=== PATIENT | female | born 1940 | race Caucasian/White ===

== ENCOUNTER 2016-07-21 14:21 | Emergency (ER) | payer MEDICARE | END 2016-07-21 18:26 | disposition home or self-care (01) | DX: M79.661 Pain in right lower leg (principal); R03.0 Elevated blood-pressure reading, without diagnosis of hypertension; E03.9 Hypothyroidism, unspecified; Z79.82 Long term (current) use of aspirin ==

== ENCOUNTER 2016-08-12 10:46 | Outpatient (CLI) | payer MEDICARE | END 2016-08-12 10:47 | disposition home or self-care (01) | DX: M85.88 Other specified disorders of bone density and structure, other site (principal) ==

== ENCOUNTER 2016-09-22 16:09 | Outpatient (CLI) | payer MEDICARE | END 2016-09-22 16:10 | disposition home or self-care (01) | DX: M47.27 Other spondylosis with radiculopathy, lumbosacral region (principal); M47.26 Other spondylosis with radiculopathy, lumbar region; M21.371 Foot drop, right foot ==

== ENCOUNTER 2018-02-08 11:58 | Outpatient (CLI) | payer MEDICARE ==
--- NOTE | 2018-02-09 10:50 | Mammography Report ---
Procedure Date: 02/08/2018 Accession Number: [id number] / [id number] Procedure: MGN - Screening Mammo Dig Bilat CPT Code: FULL RESULT: EXAM: Screening Mammo Dig Bilat DATE: 02/08/2018 12:21 PM CLINICAL HISTORY: 77-year-old female with family history of breast cancer in a sister at age 65 presents for screening mammogram. TECHNIQUE: Bilateral CC and MLO views were obtained. COMPARISON: 11/06/2015, 02/15/2014, 11/30/2012, 10/29/2011. FINDINGS: The breasts demonstrate heterogeneously dense fibroglandular parenchyma bilaterally. Typically benign coarse calcifications are seen bilaterally. No suspicious masses, clustered microcalcifications, or regions of architectural distortion are identified. IMPRESSION: Benign findings RECOMMENDATION: Routine annual screening unless otherwise clinically indicated. BIRADS CATEGORY 2: Benign findings STANDARD QUALIFYING STATEMENTS: 1. This examination was reviewed with the aid of Computer-Aided Detection (CAD). 2. A negative or benign imaging report should not delay biopsy if clinically suspicious findings are present. Consider surgical consultation if warrented. More than 5% of cancers are not identified by imaging. 3. Dense breasts may obscure an underlying neoplasm.
== END 2018-02-08 11:59 | disposition home or self-care (01) ==
LOC: DI.N 11:58
PROVIDERS: ATTEND Radiology Diagnostic Radiology
DX: Z12.31 Encounter for screening mammogram for malignant neoplasm of breast (principal); Z80.3 Family history of malignant neoplasm of breast
CPT/HCPCS: 77067

== ENCOUNTER 2021-01-02 08:00 | Outpatient (CLI) | payer MEDICARE | END 2021-01-02 23:59 | disposition home or self-care (01) | LOC: LAB.S 08:00 | PROVIDERS: ATTEND Physician Assistant Medical | DX: N30.01 Acute cystitis with hematuria (principal) | CPT/HCPCS: 87077; 87086; 87181 ==

== ENCOUNTER 2021-08-07 14:36 | Outpatient (CLI) | payer MEDICARE | END 2021-08-07 14:37 | disposition critical access hospital (66) | LOC: EMS 14:36 | DX: R07.89 Other chest pain (principal) | CPT/HCPCS: A0425; A0429 ==

== ENCOUNTER 2021-08-07 15:15 | Emergency (ER) | payer MEDICARE ==
--- NOTE | 2021-08-07 15:18 | ED Physician Documentation ---
PD HPI CHEST PAIN - Stated complaint Stated Complaint: CP - History obtained from History obtained from: Patient, EMS - History of Present Illness Timing - onset: How many hours ago (1), Today Timing - onset during: Light activity (just sitting at desk working on computer, had abrupt onset left lower anterolateral chest pain, sharp. No dyspnea, lightheadedness. Some worse with breathing.) Timing - details: Abrupt onset, Now resolved (mostly resolved after about 30 minutes. Still some mild pain in area. Pain area has not moved.) Quality: Sharp, Stabbing, Pain Location: Left chest (lower left anterolateral aspect.) Radiation: No: Jaw, Neck, Back Improved by: No: Rest (not initially, but subsequently did improve with sitting.) Worsened by: Inspiration. No: Movement, Palpation Associated symptoms: No: Shortness of air, Nausea, Feeling faint / dizzy, Palpitations, Cough Similar symptoms before: Has not had sx before Recently seen: Surgery (back surgery couple months ago, healing well.) Review of Systems Constitutional: denies: Fever, Chills Nose: denies: Rhinorrhea / runny nose, Congestion Throat: denies: Sore throat Cardiac: reports: Chest pain / pressure (just today). denies: Palpitations, Pedal edema, Calf pain Respiratory: denies: Dyspnea, Cough GI: denies: Abdominal Pain, Nausea, Vomiting Skin: denies: Rash, Lesions Neurologic: denies: Generalized weakness, Near syncope PD PAST MEDICAL HISTORY - Past Medical History Cardiovascular: Hypertension, High cholesterol Respiratory: None Neuro: None Endocrine/Autoimmune: HyPOthyroidism GI: GERD - Past Surgical History Past Surgical History: Yes /VERIFICATION LEAD: Hysterectomy - Present Medications Home Medications: Ambulatory Orders Medication Instructions Recorded Confirmed Levothyroxine Sodium [Tirosint] 112 mcg PO DAILY 06/06/14 07/21/16 Aspirin 81 mg ORAL DAILY 07/21/16 07/21/16 Famotidine 08/07/21 Pravastatin [Pravachol] 08/07/21 - Allergies Allergies/Adverse Reactions: Allergies Allergy/AdvReac Type Severity Reaction Status Date / Time codeine AdvReac Severe Hallucinati Verified 07/21/16 14:33 ons Sulfa (Sulfonamide AdvReac Intermediate Nausea Verified 07/21/16 14:33 Antibiotics) oxycodone AdvReac Nausea Verified 07/21/16 14:34 Yjgsjox-ITN-LuC Reductase AdvReac Unknown Verified 08/07/21 15:59 Inhibitor [Gkpiqqf-Mgs-Hrg Reductase Inhibitor] - Social History Does the pt smoke?: No Smoking Status: Never smoker Does the pt drink ETOH?: No Does the pt have substance abuse?: No - Immunizations Immunizations are current?: Yes PD ED PE NORMAL - Vitals Vital signs reviewed: Yes - General General: Alert and oriented X 3, No acute distress, Well developed/nourished - Neck Neck: Supple, no meningeal sign, No adenopathy - Cardiac Cardiac: RRR, No murmur - Respiratory Respiratory: Clear bilaterally, Other (no chestwall tenderness to palpation. Upp er abd not tender. ) - Abdomen Abdomen: Soft, Non tender - Back Back: No CVA TTP, No spinal TTP - Derm Derm: Normal color - Extremities Extremities: Normal ROM s pain, No edema, No calf tenderness / cord - Neuro Neuro: Alert and oriented X 3, No motor deficit, Normal speech Results - Vitals Vitals: Vital Signs - 24 hr 08/07/21 08/07/21 08/07/21 15:24 16:36 17:00 Temperature 37 C Heart Rate 61 61 59 L Respiratory 14 18 21 Rate Blood Pressure 162/81 H 140/75 H 134/90 H O2 Saturation 100 100 100 08/07/21 08/07/21 17:30 18:00 Temperature Heart Rate 57 L 56 L Respiratory 21 20 Rate Blood Pressure 145/84 H 166/66 H O2 Saturation 100 100 Oxygen O2 Source Room air - EKG (time done) 15:22 Rate: Rate (enter#) (60) Rhythm: NSR [place]: Normal Intervals: Normal [place] QRS: Normal Ischemia: Normal ST segments. No: ST elevation c/w ischemia, ST depression - Labs Labs: Laboratory Tests 08/07/21 08/07/21 08/07/21 16:07 16:07 16:07 WBC 8.8 RBC 4.81 Hgb 14.9 Hct 45.4 MCV 94.4 MCH 31.0 MCHC 32.8 RDW 13.2 Plt Count 298 MPV 9.2 Neut # (Auto) 5.8 Lymph # (Auto) 2.2 [place] # (Auto) 0.6 Eos # (Auto) 0.2 Baso # (Auto) 0.1 Absolute Nucleated RBC 0.00 Nucleated RBC % 0.0 D-Dimer 257.5 H Sodium 136 Potassium 3.5 Chloride 99 L Carbon Dioxide 26 Anion Gap 11.0 BUN 22 H Creatinine 1.0 Estimated GFR (MDRD) 53 L Glucose 98 Calcium 9.2 Total Bilirubin 0.3 AST 22 ALT 23 Alkaline Phosphatase 68 Troponin I High Sens B-Natriuretic Peptide Total Protein 7.2 Albumin 4.3 Globulin 2.9 Albumin/Globulin Ratio 1.5 Lipase 26 08/07/21 08/07/21 08/07/21 16:07 16:07 17:23 WBC RBC Hgb Hct MCV MCH MCHC RDW Plt Count MPV Neut # (Auto) Lymph # (Auto) [place] # (Auto) Eos # (Auto) Baso # (Auto) Absolute Nucleated RBC Nucleated RBC % D-Dimer Sodium Potassium Chloride Carbon Dioxide Anion Gap BUN Creatinine Estimated GFR (MDRD) Glucose Calcium Total Bilirubin AST ALT Alkaline Phosphatase Troponin I High Sens 3.7 4.0 B-Natriuretic Peptide 61 Total Protein Albumin Globulin Albumin/Globulin Ratio Lipase - Rads (name of study) chest xray Radiology: Prelim report reviewed (normal), See rad report PD MEDICAL DECISION MAKING - ED course Complexity details: reviewed results, considered differential, d/w patient Departure - Departure Disposition: 01 Home, Self Care Clinical Impression: Chest pain at rest Condition: Stable Instructions: ED Chest Pain Atypical Unkn Cause Follow-Up: BETO STEVE MD [Primary Care Provider] - Comments: It is unclear the cause of your pain. It may been a musculoskeletal pain perhaps. Most important is that there are no signs of the significant causes, in particular: No signs of heart attack, heart failure, blood clots, pneumonia, collapsed lung. I would suggest using some Tylenol or ibuprofen if you have recurring or mild pains still over the next couple of days. Return if consistent or worsening pain associated with other symptoms such as fever rash cough shortness of breath lightheadedness or other concerns. Discharge Date/Time: 08/07/21 18:25
[2021-08-07] MEDS: KETOROLAC 15 MG/ML VIAL IVP STA (15:55)
[2021-08-07] MEDS: MORPHINE 2 MG/ML CARPUJECT IVP STA (16:02)
[2021-08-07 16:17] LABS: BASOPHILS # (AUTO) 0.1 10^3/uL (0.0-0.1); BASOPHILS % (AUTO) 0.8 %; EOSINOPHILS # (AUTO) 0.2 10^3/uL (0.0-0.7); EOSINOPHILS % (AUTO) 1.7 %; HCT - HEMATOCRIT 45.4 % (37.0-47.0); HGB - HEMOGLOBIN 14.9 g/dL (12.0-16.0); LYMPHOCYTES # (AUTO) 2.2 10^3/uL (1.5-3.5); LYMPHOCYTES % (AUTO) 24.7 %; MEAN CORPUSCULAR HGB CONC 32.8 g/dL (32.0-36.0); MEAN CORPUSCULAR VOLUME 94.4 fL (81.0-99.0); MEAN PLATELET VOLUME 9.2 fL (7.9-10.8); MONOCYTES # (AUTO) 0.6 10^3/uL (0.0-1.0); MONOCYTES % (AUTO) 6.4 %; NEUTROPHILS # (AUTO) 5.8 10^3/uL (1.5-6.6); NEUTROPHILS % (AUTO) 66.1 %; PLT - PLATELET COUNT 298 10^3/uL (130-450); RED BLOOD COUNT 4.81 10^6/uL (4.20-5.40); RED CELL DISTRIBUTION WIDTH 13.2 % (12.0-15.0); WHITE BLOOD COUNT 8.8 x10^3/uL (4.8-10.8)
--- NOTE | 2021-08-07 16:22 | XRAY Report ---
PROCEDURE: Chest 1 View X-Ray INDICATIONS: Chest Pain TECHNIQUE: One view of the chest was acquired. COMPARISON: None. FINDINGS: Surgical changes and devices: None. Lungs and pleura: No pleural effusions or pneumothorax. Lungs are clear. Mediastinum: Mediastinal contours appear normal. Heart size is normal. Bones and chest wall: No suspicious bony lesions. Overlying soft tissues appear unremarkable. IMPRESSION: No acute cardiopulmonary abnormality. Reviewed by: Narciso Dorado MD on 08/07/2021 4:21 PM PST Approved by: Narciso Dorado MD on 08/07/2021 4:21 PM PST Station ID: [id number]
[2021-08-07 16:34] LABS: ALBUMIN 4.3 g/dL (3.2-5.5); ALBUMIN/GLOBULIN RATIO 1.5 (1.0-2.2); BILIRUBIN,TOTAL 0.3 mg/dL (0.2-1.0); CALCIUM 9.2 mg/dL (8.5-10.3); POTASSIUM 3.5 mmol/L (3.5-5.0); TOTAL PROTEIN 7.2 g/dL (6.7-8.2)
[2021-08-07 18:10] VITALS: BP 166/66
== END 2021-08-07 18:25 | disposition home or self-care (01) ==
LOC: EDUNIT# → ED 15:15
DX: R07.9 Chest pain, unspecified (principal)
CPT/HCPCS: 36415; 80053; 83690; 83880; 84484; 85025; 85379; 93005; 96374; 99284

== ENCOUNTER 2021-11-02 17:36 | Emergency (ER) | payer MEDICARE ==
--- NOTE | 2021-11-02 17:56 | ED Physician Documentation ---
PD HPI HEAD INJURY - Stated complaint Stated Complaint: FALL,HEAD INJ - Chief complaint Chief Complaint: Trauma Hd/Nk - History obtained from History obtained from: Patient (81-year-old woman on aspirin but otherwise not anticoagulated slipped in her yard and fell hitting her left advent against the side of the porch. She is a waxing and waning but at times severe left-sided headache but declines pain medication for it. Has some mild upper neck pain. No other injurie) Review of Systems Constitutional: reports: Reviewed and negative Ears: reports: Reviewed and negative Cardiac: reports: Reviewed and negative Respiratory: reports: Reviewed and negative PD PAST MEDICAL HISTORY - Past Medical History Cardiovascular: Hypertension, High cholesterol Respiratory: None Neuro: None Endocrine/Autoimmune: HyPOthyroidism GI: GERD - Past Surgical History Past Surgical History: Yes /MANAGER BUILDING: Hysterectomy - Present Medications Home Medications: Ambulatory Orders Medication Instructions Recorded Confirmed Levothyroxine Sodium [Tirosint] 112 mcg PO DAILY 06/06/14 07/21/16 Aspirin 81 mg ORAL DAILY 07/21/16 07/21/16 Famotidine 08/07/21 Pravastatin [Pravachol] 08/07/21 - Allergies Allergies/Adverse Reactions: Allergies Allergy/AdvReac Type Severity Reaction Status Date / Time codeine AdvReac Severe Hallucinati Verified 11/02/21 17:44 ons Sulfa (Sulfonamide AdvReac Intermediate Nausea Verified 11/02/21 17:44 Antibiotics) oxycodone AdvReac Nausea Verified 11/02/21 17:44 Uzdyvyc-LEV-BzE Reductase AdvReac Unknown Verified 11/02/21 17:44 Inhibitor [Cjdtctv-Xyd-Mwm Reductase Inhibitor] - Social History Does the pt smoke?: No Smoking Status: Never smoker Does the pt drink ETOH?: No Does the pt have substance abuse?: No - Immunizations Immunizations are current?: Yes PD ED PE NORMAL - Vitals Vital signs reviewed: Yes - General General: Alert and oriented X 3, Other (Appears slightly uncomfortable but alert and oriented) - HEENT HEENT: PERRL, EOMI, Other (Tender over the left advent) - Neck Neck: Supple, no meningeal sign, Other (Very mild tenderness around C1-C2) - Extremities Extremities: No deformity, No tenderness to palpate, Normal ROM s pain - Neuro Neuro: Alert and oriented X 3, vendette 2-12 intact, No motor deficit, No sensory deficit, Normal speech Eye Opening: Spontaneous Motor: Obeys Commands Verbal: Oriented GCS Score: 15 Results - Vitals Vitals: Vital Signs - 24 hr 11/02/21 11/02/21 17:41 19:12 Temperature 37 C 36.8 C Heart Rate 68 99 Respiratory 16 18 Rate Blood Pressure 101/67 153/69 H O2 Saturation 100 99 Oxygen O2 Source Room air PD MEDICAL DECISION MAKING - ED course ED course: 81-year-old woman presents with head injury with significant headache although she declines pain medication. CT imaging of the head and neck done without pertinent positive findings and she was relieved. The patient and family were counseled as to the diagnosis and need for follow- up. I counseled the patient with regard to signs and symptoms that would necessitate an urgent reevaluation in the emergency department. They understand they are welcome to return at any time if worse or if not improving as expected. This document was made in part using voice recognition software. While efforts are made to proofread this documents, sound alike and grammatical errors may occur. Departure - Departure Disposition: 01 Home, Self Care Clinical Impression: Concussion Condition: Good Record reviewed to determine appropriate education?: Yes Instructions: ED Concussion Comments: Call your doctor to arrange a follow-up appointment, make the next available appointment. In the interim, return anytime if worse or if new symptoms develop. Discharge Date/Time: 11/02/21 19:14
--- NOTE | 2021-11-02 18:29 | CT Report ---
PROCEDURE: HEAD WO INDICATIONS: head inj TECHNIQUE: Noncontrast 4.5 mm thick angled axial sections acquired from the foramen magnum to the vertex. For r adiation dose reduction, the following was used: automated exposure control, adjustment of mA and/or kV according to patient size. COMPARISON: Correlation is made with the accompanying cervical spine CT, 11/02/2021. FINDINGS: Image quality: Excellent. CSF spaces: Basal cisterns are patent. No extra-axial fluid collections. Ventricles are normal in size and shape. Brain: No midline shift. No intracranial masses or hemorrhage. Jones-white matter interface is norm al. Age-appropriate brain parenchymal volume loss and chronic small vessel ischemic change can be se en. Skull and face: Calvarium and visualized facial bones are intact, without suspicious lesions. Sinuses: Visualized sinuses and mastoids are clear. IMPRESSION: No significant intracranial abnormality is seen. No intracranial hemorrhage is seen. Reviewed by: Randolph Mcdowell MD on 11/02/2021 5:27 PM [facility] Approved by: Randolph Mcdowell MD on 11/02/2021 5:27 PM [id number] Station ID: [id number]
--- NOTE | 2021-11-02 18:30 | CT Report ---
PROCEDURE: CERVICAL SPINE WO INDICATIONS: head injury TECHNIQUE: Noncontrast 3 mm thick sections acquired from the skull base to the T4 level. Sagittal and coronal r eformats were then constructed. For radiation dose reduction, the following was used: automated exp osure control, adjustment of mA and/or kV according to patient size. COMPARISON: Correlation is made with the accompanying head CT, 11/02/2021. FINDINGS: Image quality: Excellent. Bones: No fractures or dislocations. Visualized superior ribs are intact. Focal degenerative change can also be seen involving the C1-C2 interface anteriorly. There is at leas t moderate disc space narrowing seen at C6-C7, with associated endplate irregularity and sclerosis. P osteriorly directed endplate osteophytes are seen. Partially bridging anterior osteophytes are seen C5-C7. Milder degenerative changes are seen elsewhere. Soft tissues: Prevertebral soft tissues are normal in thickness. No paravertebral hematomas. No ap ical pneumothoraces. IMPRESSION: No acute fracture can be seen. Cervical spine degenerative changes are seen, which are worst at the C6-C7 level. Reviewed by: Randolph Mcdowell MD on 11/02/2021 5:29 PM [facility] Approved by: Randolph Mcdowell MD on 11/02/2021 5:29 PM [facility] Station ID: [id number]
[2021-11-02 19:14] VITALS: BP 153/69
== END 2021-11-02 19:14 | disposition home or self-care (01) ==
LOC: ED 17:36
DX: S06.0X0A Concussion without loss of consciousness, initial encounter (principal); W01.198A Fall on same level from slipping, tripping and stumbling with subsequent striking against other object, initial encounter; Y92.007 Garden or yard of unspecified non-institutional (private) residence as the place of occurrence of the external cause; I10 Essential (primary) hypertension
CPT/HCPCS: 99282; 99284

== ENCOUNTER 2021-11-29 08:00 | Outpatient (CLI) | payer MEDICARE ==
--- NOTE | 2021-11-29 12:44 | XRAY Report ---
PROCEDURE: Ribs w/PA Chest RT INDICATIONS: CONTUSION OF THORAX RIGHT SIDE TECHNIQUE: 3 views of the right ribs were acquired, along with a single view chest. COMPARISON: Chest radiograph dated 08/07/2021 FINDINGS: Surgical changes and devices: None. Bones and chest wall: No fractures or dislocations. No suspicious bony lesions. Overlying soft tis sues appear unremarkable. Lungs and pleura: No pleural effusions or pneumothorax. Lungs appear clear. Mediastinum: Mediastinal contours appear normal. Heart size is normal. IMPRESSION: No obvious displaced right rib fracture is seen. No acute cardiopulmonary pathology. Reviewed by: Naresh Ac MD on 11/29/2021 12:42 PM PDT Approved by: Naresh Ac MD on 11/29/2021 12:42 PM PDT Station ID: [id number]
== END 2021-11-29 23:59 | disposition home or self-care (01) ==
LOC: DI.S 08:00
PROVIDERS: ATTEND Physician Assistant Medical
DX: S20.20XA Contusion of thorax, unspecified, initial encounter (principal)

== ENCOUNTER 2022-04-16 18:50 | Outpatient (CLI) | payer MEDICARE ==
--- NOTE | 2022-04-16 16:29 | XRAY Report ---
PROCEDURE: Ankle 3 View LT INDICATIONS: GOUTY ARTHRITIS OF LEFT ANKLE TECHNIQUE: 3 views of the ankle were acquired. COMPARISON: X-ray ankle 03/18/2012 FINDINGS: Bones: No fractures or dislocations. Ankle mortise is normally aligned. No suspicious bony lesions . Calcaneal spur is present. No erosions. Soft tissues: No tibiotalar joint effusion. Achilles tendon appears normal. IMPRESSION: No visualized erosions. No visualized acute fracture or dislocation. However, occult inj ury cannot be excluded. Recommend short interval imaging follow-up in 7-10 days as clinically indicat ed for additional evaluation. Reviewed by: Marlen Smith MD on 04/16/2022 4:27 PM PDT Approved by: Marlen Smith MD on 04/16/2022 4:27 PM PDT Station ID: [id number]
== END 2022-04-16 18:51 | disposition home or self-care (01) ==
LOC: DI.S 18:50
PROVIDERS: ATTEND Emergency Medicine
DX: M10.072 Idiopathic gout, left ankle and foot (principal)

== ENCOUNTER 2022-06-25 11:20 | Outpatient (CLI) | payer MEDICARE ==
[2022-06-25 18:40] LABS: BASOPHILS # (AUTO) 0.1 10^3/uL (0.0-0.1); BASOPHILS % (AUTO) 1.2 %; EOSINOPHILS # (AUTO) 0.2 10^3/uL (0.0-0.7); EOSINOPHILS % (AUTO) 2.6 %; HCT - HEMATOCRIT 44.4 % (37.0-47.0); HGB - HEMOGLOBIN 14.1 g/dL (12.0-16.0); LYMPHOCYTES # (AUTO) 2.1 10^3/uL (1.5-3.5); LYMPHOCYTES % (AUTO) 28.7 %; MEAN CORPUSCULAR HEMOGLOBIN 30.9 pg (27.0-31.0); MEAN CORPUSCULAR HGB CONC 31.8 g/dL (32.0-36.0); MEAN CORPUSCULAR VOLUME 97.2 fL (81.0-99.0); MEAN PLATELET VOLUME 10.2 fL (7.9-10.8); MONOCYTES # (AUTO) 0.5 10^3/uL (0.0-1.0); MONOCYTES % (AUTO) 7.1 %; NEUTROPHILS # (AUTO) 4.4 10^3/uL (1.5-6.6); NEUTROPHILS % (AUTO) 60.1 %; PLT - PLATELET COUNT 309 10^3/uL (130-450); RED BLOOD COUNT 4.57 10^6/uL (4.20-5.40); RED CELL DISTRIBUTION WIDTH 12.5 % (12.0-15.0); WHITE BLOOD COUNT 7.3 x10^3/uL (4.8-10.8)
[2022-06-25 18:46] LABS: INR 1.4 (0.8-1.2)
[2022-06-25 19:50] LABS: CREATININE 1.2 mg/dL (0.4-1.0); POTASSIUM 4.2 mmol/L (3.5-5.0)
== END 2022-06-25 11:21 | disposition home or self-care (01) ==
LOC: LAB.S 11:20
PROVIDERS: ATTEND Specialist
DX: I48.0 Paroxysmal atrial fibrillation (principal)
CPT/HCPCS: 36415; 80048; 85025; 85610

== ENCOUNTER 2022-07-23 10:25 | Outpatient (CLI) | payer MEDICARE ==
--- NOTE | 2022-07-23 10:41 | XRAY Report ---
PROCEDURE: Pelvis 3 View INDICATIONS: ACUTE PELVIC PAIN AFTER FALL TECHNIQUE: 3 view(s) of the pelvis acquired. COMPARISON: X-ray pelvis and right hip, 07/16/2015. FINDINGS: Bones: No fractures or dislocations. No suspicious bony lesions. Moderate osteoarthritic changes i n hips and sacroiliac joints bilaterally. Lower lumbar spine laminectomy and posterior fusion. Soft tissues: Visualized bowel gas pattern is normal. No suspicious soft tissue calcifications. IMPRESSION: 1. No acute osseous abnormality. If clinical suspicion for occult fracture persists, CT would be help ful. 2. Moderate osteoarthritis. 3. Postsurgical changes in the lower lumbar spine. Reviewed by: Servando Peñaloza MD on 07/23/2022 9:39 AM [facility] Approved by: Servando Peñaloza MD on 07/23/2022 9:39 AM [facility] Station ID: [id number]
== END 2022-07-23 10:26 | disposition home or self-care (01) ==
LOC: DI.S 10:25
PROVIDERS: ATTEND Physician Assistant Medical
DX: M16.0 Bilateral primary osteoarthritis of hip (principal); M47.898 Other spondylosis, sacral and sacrococcygeal region

== ENCOUNTER 2023-05-27 07:00 | Outpatient (CLI) | payer MEDICARE ==
--- NOTE | 2023-05-27 11:47 | XRAY Report ---
PROCEDURE: Shoulder 3 View RT INDICATIONS: PAIN IN RIGHT SHOULDER TECHNIQUE: 3 views of the shoulder were acquired. COMPARISON: None FINDINGS: Bones: No fractures or dislocations. No suspicious bony lesions. Visualized ribs appear intact. Soft tissues: No suspicious soft tissue calcifications. IMPRESSION: Unremarkable shoulder radiographs Reviewed by: Sotero Montanez MD on 05/27/2023 10:45 AM [facility] Approved by: Sotero Montanez MD on 05/27/2023 10:45 AM [facility] Station ID: [id number]
== END 2023-05-27 23:59 | disposition home or self-care (01) ==
LOC: DI.S 07:00
PROVIDERS: ATTEND Registered Nurse
DX: M25.511 Pain in right shoulder (principal)

== ENCOUNTER 2023-11-19 08:48 | Outpatient (CLI) | payer MEDICARE ==
[2023-11-19 15:26] LABS: BASOPHILS # (AUTO) 0.1 10^3/uL (0.0-0.1); BASOPHILS % (AUTO) 1.8 %; EOSINOPHILS # (AUTO) 0.1 10^3/uL (0.0-0.7); EOSINOPHILS % (AUTO) 2.9 %; HGB - HEMOGLOBIN 13.5 g/dL (12.0-16.0); LYMPHOCYTES # (AUTO) 1.3 10^3/uL (1.5-3.5); LYMPHOCYTES % (AUTO) 29.2 %; MEAN CORPUSCULAR HEMOGLOBIN 31.3 pg (27.0-31.0); MEAN CORPUSCULAR HGB CONC 32.1 g/dL (32.0-36.0); MEAN CORPUSCULAR VOLUME 97.4 fL (81.0-99.0); MEAN PLATELET VOLUME 9.7 fL (7.9-10.8); MONOCYTES # (AUTO) 0.4 10^3/uL (0.0-1.0); MONOCYTES % (AUTO) 9.7 %; NEUTROPHILS # (AUTO) 2.5 10^3/uL (1.5-6.6); NEUTROPHILS % (AUTO) 56.2 %; PLT - PLATELET COUNT 297 10^3/uL (130-450); RED BLOOD COUNT 4.31 10^6/uL (4.20-5.40); RED CELL DISTRIBUTION WIDTH 12.7 % (12.0-15.0); WHITE BLOOD COUNT 4.5 x10^3/uL (4.8-10.8)
[2023-11-19 15:31] LABS: ALBUMIN 4.3 g/dL (3.2-5.5); ALBUMIN/GLOBULIN RATIO 1.7 (1.0-2.2); BILIRUBIN,TOTAL 0.4 mg/dL (0.2-1.0); CALCIUM 9.7 mg/dL (8.5-10.3); POTASSIUM 4.4 mmol/L (3.5-4.5); TOTAL PROTEIN 6.9 g/dL (6.4-8.9)
== END 2023-11-19 08:49 | disposition home or self-care (01) ==
LOC: LAB.S 08:48
PROVIDERS: ATTEND Emergency Medicine
DX: K57.92 Diverticulitis of intestine, part unspecified, without perforation or abscess without bleeding (principal)
CPT/HCPCS: 36415; 80053; 85025

== ENCOUNTER 2024-01-26 18:11 | Outpatient (CLI) | payer MEDICARE | END 2024-01-26 23:59 | disposition critical access hospital (66) | LOC: EMS 18:11 | DX: M25.511 Pain in right shoulder (principal); M25.531 Pain in right wrist; S01.111A Laceration without foreign body of right eyelid and periocular area, initial encounter; W01.0XXA Fall on same level from slipping, tripping and stumbling without subsequent striking against object, initial encounter; Y92.008 Other place in unspecified non-institutional (private) residence as the place of occurrence of the external cause | CPT/HCPCS: A0425; A0429 ==

== ENCOUNTER 2024-01-26 18:46 | Emergency (ER) | payer MEDICARE ==
--- NOTE | 2024-01-26 20:15 | ED Physician Documentation ---
PD HPI Fall - Stated complaint Stated Complaint: FALL - Chief complaint Chief Complaint: Trauma Hd/Nk - History obtained from History obtained from: Patient - Additional information Additional information: HPI from patient Patient states "I fell in my driveway", "tripped over the hose ". This caused her to fall on outstretched (right) upper extremity, which resulted in sudden onset of right wrist pain which has subsequently gradually worsened and spread to her right elbow. Despite bracing her fall with her right arm, she then struck her head on the concrete driveway. She denies LOC. She also is complaining of right chest pain that is worse with deep inspiration as well as palpation of the right chest. She also complains of right-sided headache and right facial pain/tenderness. She denies visual changes, vomiting. Denies neck, back pain. She is right hand dominant. She does not take any blood-thinning medications except 81mg ASA QD PD PAST MEDICAL HISTORY - Past Medical History Past Medical History: Yes Cardiovascular: Hypertension, High cholesterol Respiratory: None Neuro: None Endocrine/Autoimmune: HyPOthyroidism GI: GERD - Past Surgical History Past Surgical History: Yes /[employer]: Hysterectomy - Present Medications Home Medications: Ambulatory Orders Medication Instructions Recorded Confirmed Levothyroxine Sodium [Tirosint] 112 mcg PO DAILY 06/06/14 01/26/24 Aspirin 81 mg ORAL DAILY 07/21/16 01/26/24 Famotidine 10 mg PO DAILY 08/07/21 01/26/24 Pravastatin [Pravachol] 08/07/21 HYDROcod/ACETAM 5/325 [[place] 5/325] 1 - 2 tablet PO Q6H PRN #14 tablet 01/27/24 - Allergies Allergies/Adverse Reactions: Allergies Allergy/AdvReac Type Severity Reaction Status Date / Time codeine AdvReac Severe Hallucinati Verified 01/26/24 18:51 ons Sulfa (Sulfonamide AdvReac Intermediate Nausea Verified 01/26/24 18:51 Antibiotics) oxycodone AdvReac Nausea Verified 01/26/24 18:51 Jaddvjk-AKS-[id number] Reductase AdvReac Unknown Verified 01/26/24 18:51 Inhibitor [Besyiyr-Rxv-Sbk Reductase Inhibitor] - Social History Does the pt smoke?: No Smoking Status: Never smoker Does the pt drink ETOH?: No Does the pt have substance abuse?: No - Immunizations Immunizations are current?: Yes PD ED PE NORMAL - Vitals Vital signs reviewed: Yes - General General: Alert and oriented X 3, No acute distress, Well developed/nourished - HEENT HEENT: PERRL, EOMI - Neck Neck: No bony TTP - Cardiac Cardiac: RRR, No murmur - Respiratory Respiratory: No respiratory distress, Clear bilaterally - Abdomen Abdomen: Soft, Non distended PD ED PE EXPANDED - HEENT HEENT Visual: 1 - laceration (2 cm length) 2 - bruising, swelling, tenderness - Cardiac Cardiac: Chest wall TTP (right anterolateral chest wall TTP without crepitus) - Abdomen Abdomen: Tender to palpation (mild but diffuse TTP without rebound or guarding). No: Rebound, Guarding - Extremities Extremities: Tenderness (right elbow, predominantly lateral aspect; right wrist, "snuff box" tenderness), Limited ROM (right elbow; intact (full) ROM right wrist), Swelling (right hand, focal swelling and echymosis to dorsum at wrist) Results - Vitals Vitals: Oxygen O2 Source Room air - Labs Labs: Laboratory Tests 01/26/24 01/26/24 20:19 20:19 WBC 7.0 RBC 4.47 Hgb 13.8 Hct 41.8 MCV 93.5 MCH 30.9 MCHC 33.0 RDW 12.9 Plt Count 309 MPV 9.7 Neut # (Auto) 4.6 Lymph # (Auto) 1.6 [place] # (Auto) 0.6 Eos # (Auto) 0.2 Baso # (Auto) 0.1 Absolute Nucleated RBC 0.00 Nucleated RBC % 0.0 Sodium 139 Potassium 4.0 Chloride 106 Carbon Dioxide 25 Anion Gap 8.0 BUN 22 H Creatinine 0.9 Estimated GFR (MDRD) 60 L Glucose 89 Calcium 9.6 - Rads (name of study) right wrist xrays Relevant Findings:: Prelim report reviewed, See rad report right elbow xrays Relevant Findings:: Prelim report reviewed, See rad report CTH Relevant Findings:: Prelim report reviewed, See rad report CT facial bones (maxillofacial) Relevant Findings:: Prelim report reviewed, See rad report CT chest Relevant Findings:: Prelim report reviewed, See rad report CT A/P with IV contrast Relevant Findings:: Prelim report reviewed, See rad report Procedures - Laceration (location) Face right Length in cm: 2 Wound type: Linear Neurovascular status: Sensory intact, Motor intact, Vascular intact Wound preparation: Wound explored, To the base Skin layer closure: Dermabond Other: Patient tolerated well, No complications, Neurovascular intact, Tetanus UTD PD Medical Decision Making - ED course Complexity details: reviewed results, re-evaluated patient, considered differential, d/w patient ED course: Normal CBC, unremarkable BMP (mildly elevated BUN with normal creatinine). No acute/concerning findings on CTH, CT maxillfacial, CT chest, CT A/P. plain- film xrays reveal right humeral head fracture as well as findings suspicious for scaphoid/navicular fracture. Possible ulnar styloid fracture but questionable age of that finding. Results d/w patient. She is placed in a long arm splint on [facility] that will relatively immobilize both the right elbow and the wrist. Sling provided. Results d/w patient, return precautions reviewed, advised to seek follow up with orthopedic surgery within one week. Regarding analgesia, there was much discussion w/ patient; she was comfortable with IV toradol (given 15mg IV), but very reluctant to take any narcotic/opiate analgesics for fear of side effect(s). she wavers between recalling whether she has difficulty with oxycodone/percocet or hydrocodone/vicodin. She initially declines anything more than the toradol but then asks ED RN for stronger medication. My colleague entered order for 0.5mg dilaudid (I was tending to another patient at that time). Patient subsequently tells me she had some degree of improvement but, as we were discussing d/w plans, she is afraid of what to do when the dilaudid wears off. I offered another dose but she is again is very reluctant for fear of side effects. After much further discussion, plan is to given take-home pack of vicodin and I will electronically submit rx for vicodin to her pharmacy of choice. Departure - Departure Disposition: 01 Home, Self Care Clinical Impression: Right radial head fracture Qualifiers: Encounter type: initial encounter Fracture type: closed Fracture alignment: nondisplaced Qualified Code(s): S52.124A - Nondisplaced fracture of head of right radius, initial encounter for closed fracture Scaphoid fracture of wrist Qualifiers: Encounter type: initial encounter Scaphoid bone location: unspecified portion of scaphoid Fracture type: closed Fracture alignment: nondisplaced Laterality: right Qualified Code(s): S62.001A - Unspecified fracture of navicular [scaphoid] bone of right wrist, initial encounter for closed fracture Contusion of head Qualifiers: Encounter type: initial encounter Contusion of head detail: periocular area Laterality: right Qualified Code(s): S00.11XA - Contusion of right eyelid and pe riocular area, initial encounter Laceration of forehead Qualifiers: Encounter type: initial encounter Qualified Code(s): S01.81XA - Laceration without foreign body of other part of head, initial encounter Condition: Good Instructions: ED Fx Radial Head, ED Laceration Facial Skin Glue, ED Fx Wrist Navicular Conf, ED Fx Wrist Ch Follow-Up: Stu Ramirez MD [Provider Admit Priv/Credential] - Prescriptions: HYDROcod/ACETAM 5/325 [[place] 5/325] 1 - 2 tablet PO Q6H PRN #14 tablet PRN Reason: Pain Comments: There are no acute findings on the CT scans of your head, facial bones, chest, and abdomen. The x-rays of your right elbow demonstrate a fracture (radial head). The x-rays of your right wrist are suspicious for a fracture of one of the wrist bones (scaphoid/navicular).Because of these x-ray findings, you were placed in a splint and sling. You will need to follow-up with an orthopedic surgeon for reevaluation of both of these injuries, ideally within 1 week. I have electronically submitted a prescription for Vicodin (narcotic/opiate pain medication) to the [facility] in [place]. I am prescribing a short course of narcotic pain medication for you. These are potentially dangerous and addictive medications that should be used carefully. These medications may constipate you. Take an ejir-uyb-tuwbata stool softener (docusate) twice daily with plenty of water while taking these medications. If you go 24 hours without a bowel movement, take ruyb-wgs-mfabfyc miralax, per package instructions. Do not drink or drive while taking these medications. If you received narcotic or sedating medications while in the emergency department, do not drive for 24 hours. Store this medication in a safe, secure place and out of reach of children. It is a violation of federal law to give or sell this medication to another person or to use in a manner other than prescribed. The ED will not refill narcotic prescriptions, including prescriptions lost or stolen. To dispose of unwanted medications: 1. [facility] at [address] in [place] has a medication drop box. They accept prescription medications (in pill form) Thursday through Thursday 9:00 a.m. to 5:00 p.m. 2. [facility] accepts prescription medications (in pill form only) for disposal year round. Call for more infor mation. 3. Contact the [facility] for the next [facility] sponsored prescription drug collection event. , [phone], or [phone]; Discharge Date/Time: 01/27/24 01:47
[2024-01-26 20:55] LABS: BASOPHILS # (AUTO) 0.1 10^3/uL (0.0-0.1); BASOPHILS % (AUTO) 1.3 %; EOSINOPHILS # (AUTO) 0.2 10^3/uL (0.0-0.7); HCT - HEMATOCRIT 41.8 % (37.0-47.0); HGB - HEMOGLOBIN 13.8 g/dL (12.0-16.0); LYMPHOCYTES # (AUTO) 1.6 10^3/uL (1.5-3.5); LYMPHOCYTES % (AUTO) 22.2 %; MEAN CORPUSCULAR HEMOGLOBIN 30.9 pg (27.0-31.0); MEAN CORPUSCULAR VOLUME 93.5 fL (81.0-99.0); MEAN PLATELET VOLUME 9.7 fL (7.9-10.8); MONOCYTES # (AUTO) 0.6 10^3/uL (0.0-1.0); MONOCYTES % (AUTO) 8.1 %; NEUTROPHILS # (AUTO) 4.6 10^3/uL (1.5-6.6); NEUTROPHILS % (AUTO) 65.1 %; PLT - PLATELET COUNT 309 10^3/uL (130-450); RED BLOOD COUNT 4.47 10^6/uL (4.20-5.40); RED CELL DISTRIBUTION WIDTH 12.9 % (12.0-15.0)
[2024-01-26] MEDS: KETOROLAC 15 MG/ML VIAL IVP STA (21:07)
[2024-01-26] MEDS ORDERED: iohexoL-300 100 ML VIAL ONE (21:25)
--- NOTE | 2024-01-26 21:56 | XRAY Report ---
PROCEDURE: Elbow 3+V RT INDICATIONS: fall, elbow pain TECHNIQUE: 3 views of the elbow were acquired. COMPARISON: None. FINDINGS: Bones: Intra-articular fracture of the radial head. Soft tissues: Large effusion. No suspicious soft tissue calcifications or masses. IMPRESSION: Intra-articular fracture of the radial head. Reviewed by: Tawanda Spears MD on 01/26/2024 9:55 PM PDT Approved by: Tawanda Spears MD on 01/26/2024 9:55 PM PDT Station ID: [id number]
--- NOTE | 2024-01-26 21:57 | XRAY Report ---
PROCEDURE: Wrist 3+V RT INDICATIONS: fall, wrist pain TECHNIQUE: 3 views of the wrist were acquired. COMPARISON: None. FINDINGS: Bones: Linear lucency through the distal pole of the scaphoid. No suspicious bony lesions. Age-indet erminate fracture of the ulnar styloid. Soft tissues: No suspicious soft tissue calcifications or masses. IMPRESSION: Linear lucency through the distal pole of the scaphoid, which could represent a minimally displaced f racture. Correlate with anatomic stuff box tenderness. Age indeterminate fracture of the ulnar styloid. Reviewed by: Tawanda Spears MD on 01/26/2024 9:56 PM PDT Approved by: Tawanda Spears MD on 01/26/2024 9:56 PM PDT Station ID: [id number]
[2024-01-26 22:01] LABS: CALCIUM 9.6 mg/dL (8.5-10.3); CREATININE 0.9 mg/dL (0.6-1.3)
[2024-01-26] MEDS: iohexoL-300 100 ML VIAL IVP ONE (23:00)
[2024-01-26] MEDS: HYDROmorphone 0.5 MG/0.5 ML SYRINGE IVP STA (23:03)
--- NOTE | 2024-01-26 23:42 | CT Report ---
PROCEDURE: Head WO INDICATIONS: fall, head injury TECHNIQUE: Noncontrast 4.5 mm thick angled axial sections acquired from the foramen magnum to the vertex. For r adiation dose reduction, the following was used: automated exposure control, adjustment of mA and/or kV according to patient size. COMPARISON: 11/02/2021. FINDINGS: Image quality: Diagnostic. CSF spaces: Basal cisterns are patent. No extra-axial fluid collections. Ventricles are normal in size and shape. Brain: No midline shift. No intracranial masses or hemorrhage. Jones-white matter interface is norm al. Skull and face: Calvarium and visualized facial bones are intact, without suspicious lesions. Sinuses: Visualized sinuses and mastoids are clear. IMPRESSION: No acute intracranial pathology. Reviewed by: Stefan Bojorquez MD on 01/26/2024 11:40 PM PDT Approved by: Stefan Bojorquez MD on 01/26/2024 11:40 PM PDT Station ID: [id number]
--- NOTE | 2024-01-26 23:45 | CT Report ---
PROCEDURE: Maxillofacial WO INDICATIONS: fall, right facial pain and bony TTP (supraorbital TECHNIQUE: Noncontrast 1.5 mm thick axial images acquired from the mandible through the frontal sinuses, with co cruz and sagittal reformatting. For radiation dose reduction, the following was used: automated ex posure control, adjustment of mA and/or kV according to patient size. COMPARISON: None. FINDINGS: Image quality: Diagnostic. Bones and teeth: Orbital carrillo are intact. Sinus carrillo show no fracture or deformity. Nasal bones and septum are intact. Visualized portions of the mandible demonstrate no fractures or subluxation. Zygomatic arches are intact. Pterygoid plates are intact. Visualized portions of the skull base an d auditory canals are intact. Sinuses: Paranasal sinuses are aerated, without fluid levels, mucosal thickening, or mucoceles. Mas toid air cells are aerated. Soft tissues: Minimal frontal scalp soft tissue edema. No masses, or fluid collections. No enlarged lymph nodes. No soft tissue lacerations or debris. Vascular: Visualized vascular structures appear normal in the absence of contrast. Bony vascular fo ramina and canals are intact. IMPRESSION: CT facial bones without acute fracture. Reviewed by: Stefan Bojorquez MD on 01/26/2024 11:43 PM PDT Approved by: Stefan Bojorquez MD on 01/26/2024 11:43 PM PDT Station ID: [id number]
--- NOTE | 2024-01-26 23:48 | CT Report ---
PROCEDURE: Chest WO INDICATIONS: fall, right-sided chest pain and TTP TECHNIQUE: A CT scan of the chest was performed. Intravenous contrast media was not administered. Images were re corded and evaluated at appropriate window settings. Reformats: axial MIP of the chest, coronal and s agittal. For radiation dose reduction, the following was used: automated exposure control, adjustment of mA and/or kV according to patient size. COMPARISON: None. FINDINGS: Image quality: Diagnostic. Chest wall and lower neck: No thyroid nodule which requires sonographic follow up. No axillary or sup raclavicular adenopathy by size. Lungs and pleura: No consolidation. No pleural effusions. No pneumothorax. No suspicious pulmonary n odules which require follow up. Mediastinum: Heart size is normal. No pericardial effusion. No large vessel abnormality. No mediastin al adenopathy by size criteria. Bones: No aggressive osseous abnormality. No rib fractures seen. Acute compression fractures. Multile tree thoracic spondylosis. Upper Abdomen: Unremarkable. Small hiatal hernia. IMPRESSION: CT chest without acute cardiac pulmonary abnormality. No acute fractures seen. No evidence for acute traumatic injury. Reviewed by: Stefan Bojorquez MD on 01/26/2024 11:47 PM PDT Approved by: Stefan Bojorquez MD on 01/26/2024 11:47 PM PDT Station ID: [id number]
--- NOTE | 2024-01-26 23:53 | CT Report ---
PROCEDURE: Abdomen/Pelvis W INDICATIONS: fall, abdominal TTP CONTRAST: Omni 300, 100mls TECHNIQUE: After the administration of intravenous contrast, a CT scan of the abdomen and pelvis was performed. Images were recorded and evaluated at appropriate window settings. Reformats: coronal and sagittal. F or radiation dose reduction, the following was used: automated exposure control, adjustment of mA and /or kV according to patient size. COMPARISON: 11/25/2023. FINDINGS: Image quality: Diagnostic. Lower chest: Unremarkable. Small hiatal hernia. Liver: Hepatic steatosis. Stable subcentimeter right hepatic lobe hypodensity too small to characteri ze but likely representing a hemangioma or cyst. Gallbladder: No radiopaque stones or wall thickening. Biliary tree: No intrahepatic or extrahepatic dilation, accounting for age. Spleen: No splenomegaly. Pancreas: No pancreatic ductal dilation. Adrenals: No adrenal nodule. Kidneys and ureters: No hydronephrosis. No renal cystic lesion which requires follow up. No solid mas s. Stomach, bowel and peritoneum: No gastric or small bowel dilation. No abnormal wall thickening. No pa thologic free fluid. Moderate fecal burden seen throughout the colon. Colonic diverticulosis without acute diverticulitis. No acute inflammatory changes identified. Lymph nodes: No central or retroperitoneal adenopathy. Vessels: No infrarenal aortic aneurysm. Patent portal vein. PELVIS Reproductive organs: Unremarkable. Bladder: No abnormal wall thickening, accounting for underdistention. Pelvic lymph nodes: No pelvic adenopathy by size criteria. Bones: No aggressive osseous abnormality. Stable postsurgical changes of spinal fusion of L4-S1. Stab le anterolisthesis of L4 on L5. Multilevel spondylosis. No acute compression fractures. Other: No significant ventral or inguinal hernia. IMPRESSION: CT abdomen and pelvis without acute abnormality. Moderate fecal loading of before without acute inflammatory changes. Colonic diverticulosis without a cute diverticulitis. Other chronic findings as above Reviewed by: Stefan Bojorquez MD on 01/26/2024 11:52 PM PDT Approved by: Stefan Bojorquez MD on 01/26/2024 11:52 PM PDT Station ID: [id number]
[2024-01-27] MEDS: HYDROcod/ACET 5/325 Prepack 4 PO STA (01:04)
[2024-01-27 01:48] VITALS: BP 151/56; O2SAT 97
== END 2024-01-27 01:47 | disposition home or self-care (01) ==
LOC: EDUNIT# → ED 18:46
DX: S52.124A Nondisplaced fracture of head of right radius, initial encounter for closed fracture (principal); S62.014A Nondisplaced fracture of distal pole of navicular [scaphoid] bone of right wrist, initial encounter for closed fracture; S01.81XA Laceration without foreign body of other part of head, initial encounter; W01.0XXA Fall on same level from slipping, tripping and stumbling without subsequent striking against object, initial encounter; Y92.008 Other place in unspecified non-institutional (private) residence as the place of occurrence of the external cause; I10 Essential (primary) hypertension; E78.00 Pure hypercholesterolemia, unspecified; E03.9 Hypothyroidism, unspecified; Z79.82 Long term (current) use of aspirin; Z79.899 Other long term (current) drug therapy
CPT/HCPCS: 12011; 36415; 70450; 70486; 71250; 73080; 73110; 74177; 80048; 85025; 96374; 96375; 99284; J1170; Q9967

== ENCOUNTER 2024-01-27 20:15 | Outpatient (CLI) | payer MEDICARE | END 2024-01-27 23:59 | disposition EMS.NT | LOC: EMS 20:15 | DX: R07.89 Other chest pain (principal) ==